=== PATIENT | male | born 1960 | race Caucasian/White ===

== ENCOUNTER → 2024-02-10 13:28 | Outpatient (REF) | payer OTHER, SELFPAY | LOC: RAD 13:28 | PROVIDERS: ATTENDING PHYSICIAN Family Medicine | DX: M79.89 Other specified soft tissue disorders (principal) | CPT/HCPCS: 93971 ==

== ENCOUNTER 2025-02-21 15:27 | Emergency (ER) | payer OTHER, SELFPAY ==
[2025-02-21 15:29] VITALS: BP 148/78
--- NOTE | 2025-02-21 16:26 | ED.GENMED ---
History of Present Illness
General
Chief Complaint: Swelling
Source: patient and spouse ( at bedside)
Exam Limitations: none
Time Seen by Provider: 02/21/25 16:10
Nursing documentation reviewed up to this point in time: agreed with
History of Present Illness
History of Present Illness:
Patient is a 64 year old male with history hypertension, diabetes, DVT presenting to the emergency department via EMS from PCP office with swelling of left lower extremity. Patient reports intermittent swelling in his left lower leg over the past 2
to 3 weeks. He states he started noticing pain in his left calf a few days ago. Patient had a scheduled appoint with his primary care today where they evaluated the lower leg swelling and were concerned that he may have a blood clot. They sent
him to the emergency department for further evaluation.
Patient denies any fever, chills, chest pain, shortness of breath.
Patient does have a history of a DVT in left leg about 1 year ago and is currently treated with Eliquis. Although he does endorse very poor compliance with his Eliquis and states he takes it usually once a day at best although it is prescribed
twice a day. He was also diagnosed with plaque psoriasis of LLE which he treats topically.
There has been no recent trauma.
Past History
Past History
ED Past Medical History: HTN and NIDDM
ED Past Surgical History: Other (Dental)
Social History
Tobacco: Non-smoker
Review of Systems
Review of Systems
Allergies reviewed?: Yes
All Other Systems: ROS reviewed and negative except as documented in HPI and ROS
Phy Exam
Physical Exam
Physical Exam:
Vitals: Hypertensive, otherwise vital signs stable. Afebrile
General: Patient is well appearing, no acute distress
Skin: Warm and dry, no rashes or lesions. Erythema and scaling of left lower extremity and foot.
Head: Normocephalic, atraumatic
Eyes: Sclera nonicteric. EOMs intact. No nystagmus.
Throat: Protecting airway
Neck: Normal ROM, no cervical spine tenderness, no meningismus
Cardiac: Regular rate and rhythm, no murmurs.
Pulm: Normal respiratory effort, no wheezes, rales, rhonchi heard on exam.
Abdomen: Abdomen soft and nontender.
Extremities: 1+ pitting edema of left lower extremity from foot to mid calf. Full range of motion in left ankle and left knee without pain. Erythema and scaling of skin of left ewing and left foot without red streaking or significant warmth.
Palpable DP pulses left lower extremity. Cap refill within normal limits.
Neuro: AAOx3. Grossly intact.
Psychiatric: Normal affect.
Scores
Heart Failure Risk
Heart Failure Risk Score: Not Applicable
Course
Orders/Labs/Results
Orders:
Orders
02/21/25 16:22
US Legs, Left [US Periph Venous LOWER Ext LT] Urgent
Comment:
Reason For Exam: LLE swelling; hx DVT
02/21/25 16:29
Basic Metabolic Panel Urgent
Complete Blood Count/With Diff Urgent
02/21/25 19:09
Cephalexin Monohydrate [Keflex] 500 mg PO NOW STA
Abnormal Lab Results
02/21/25
16:29
RBC 4.27 L 10^6/uL
(4.70-6.10)
Hgb 12.6 L g/dL
(13.0-18.0)
Hct 37.5 L %
(39.0-52.0)
BUN 27 H mg/dl
(9-20)
Glucose 293 H mg/dl
(70-99)
02/21/25 16:29
02/21/25 16:29
Vital Signs
Initial and Last Documented VS:
Initial Vital Signs
Temp Pulse Resp BP Pulse Ox
97.8 F 84 16 148/78 98
02/21/25 15:29 02/21/25 15:29 02/21/25 15:29 02/21/25 15:29 02/21/25 15:29
Last Documented Vital Signs
Temp Pulse Resp BP Pulse Ox
97.8 F 86 20 148/78 95
02/21/25 15:29 02/21/25 19:23 02/21/25 19:23 02/21/25 15:29 02/21/25 19:23
MDM/Problems Addressed
Differential Diagnosis Includes:
Not limited to: DVT, cellulitis, plaque psoriasis, ruptured Herron's cyst, lymphedema, etc.
MDM/Problems Addressed:
Patient is a 64-year-old male with history as documented presenting with intermittent left lower extremity edema and minimal pain. Does have history of DVT in left lower extremity and poor compliance with Eliquis. No associated fever, chest pain,
shortness of breath, numbness/tingling in LLE. No recent trauma. Mildly hypertensive, otherwise stable vital signs. Physical exam as above. Patient well-appearing, no apparent distress. Cardio/pulmonary assessment unremarkable. He does have 1+
pitting edema of left lower extremity with mild erythema and scaling of skin. Differential diagnosis includes DVT, cellulitis, lymphedema, etc. Will patient is currently anticoagulated�given poor compliance�DVT would remain on differential. Will
check basic labs and ultrasound left lower extremity.
Update: Labs reviewed. He is acutely hyperglycemic with a sugar of 293. This was discussed with patient who also reports poor compliance with his glipizide. Ultrasound shows no evidence of DVT. Given erythema and scaling of left lower
extremity�will start Keflex to treat for possible cellulitic component. Lengthy discussion with patient and patient's regarding importance of compliance with both Eliquis, glipizide, and other medications. Advise follow-up with PCP next week.
Close return precautions discussed. Patient and patient's comfortable with plan. Patient ambulating out of department with no difficulty.
Chronic conditions affecting care:
Hypertension, diabetes, history of DVT
Acute Exacerbation and/or Progression of Chronic Illness:
Acutely hyperglycemic
*Radiology
Radiology exam reviewed: radiology read reviewed
*Pulse Oximetry
Patient hypoxic: no
*EKG
Interpreted by ED Provider?: NA
*[employer] Interpretation
Rate: [employer]eter- N/A
*Critical Care Note
Total Time (30-74mins, 75-104mins- exclusive of procedures): Not Applicable
Patient Management
Escalation/DeEscalation of care consider admission/obs:
Admit not indicated
ED Attending Note
-
Portions of this chart may have been created with voice recognition software.� Occasional wrong word or��sound alike� substitutions may have occurred due to the inherent limitations of voice recognition software.
Discharge Plan
Departure
Patient Disposition: Home (Routine Discharge)
Date of Disposition: 02/21/25
Time of Disposition: 19:09
Patient with high blood pressure during this ER visit?: Yes
Condition: Good
Covid-19: Not Applicable
Discharge Problem:
Cellulitis of left leg
Instructions: Cellulitis (skin infection) in adults - Discharge instructions, BLOOD PRESSURE
Prescriptions:
New
cephalexin 500 mg capsule
500 mg PO QID 7 Days Qty: 28 0RF
No Action
atorvastatin 80 MG tablet
80 mg PO QPM 30 Days Qty: 30 0RF
valsartan 80 MG tablet
160 mg PO DAILY 30 Days Qty: 30 0RF
metformin 1,000 MG tablet
1,000 mg PO BID 30 Days Qty: 60 0RF
aspirin 81 MG tablet,chewable
81 mg PO DAILY 30 Days Qty: 30 0RF
insulin aspart U-100 [Novolog FlexPen U-100 Insulin] 300 UNITS/3 ML insulin pen
6 units SC AC Qty: 1 1RF
insulin glargine [Lantus Solostar U-100 Insulin] 300 UNITS/3 ML insulin pen
25 units SC HS Qty: 1 1RF
Referrals:
Lashawn Monge DO [Family Provider] - Follow up in 5-7 days
Activity Restrictions/Additional Instructions:
Return to the emergency department with any high fevers, significant worsening in pain, swelling, or redness of left lower leg, expanding redness or red streaking, inability to ambulate, chest pain, shortness of breath, worsening in current
symptoms, or any other concerns
-Your ultrasound showed no evidence of DVT in your left lower leg.
-You were started on antibiotics for a skin infection. You should take this 4 times a day for the next week. You were given your first dose in the emergency department.
-As discussed - your glucose level was elevated today. It is important that you are compliant with your medications as prescribed.You should take your Eliquis twice a day as prescribed. Is very important you do not miss doses.
-Elevate your left leg. Wear compression stockings.
Follow-up with your primary care provider early next week for further evaluation and to ensure that symptoms are improving. If swelling persist/worsens�you may need a repeat ultrasound.
Interventions
Interventions:
*Risk Screen - Suicide Last Done: 02/21/25 16:32
*General Assessment Last Done: 02/21/25 16:32
*Neglect/Abuse Screening Last Done: 02/21/25 16:32
*ED- Fall Risk Assessment Last Done: 02/21/25 16:32
*ED COVID-19 Vaccine History Last Done: 02/21/25 16:32
*Nursing Disposition Last Done: 02/21/25 19:31
ED- Cardiac Assessment Last Done: 02/21/25 16:32
ED- Pulmonary Assessment Last Done: 02/21/25 16:32
ED-Skin Assessment Last Done: 02/21/25 16:32
Discharge Date and Time
Discharge Date/Time: 02/21/25 19:32
Print Language: [id number]
[2025-02-21 16:48] LABS: Blood Urea Nitrogen 27 mg/dl (9-20); Carbon Dioxide 30 mmol/L (22-30); Chloride 103 mmol/L (98-107); Glucose 293 mg/dl (70-99); Potassium 4.9 mmol/L (3.5-5.1); Sodium 138 mmol/L (135-145); eGFR > 60.00
[2025-02-21 17:24] LABS: % Basophils 0.6 % (0-2); % Eosinophils 2.5 % (0-6); % Immature Granulocytes 0.4 % (0-0.5); % Lymphocytes 24.1 % (20.5-51.1); % Monocytes 6.6 % (1.7-9.3); % Neutrophils 65.8 % (42.2-75.2); Absolute Eosinophils 0.2 10^3/uL (0-0.7); Absolute Lymphocytes 1.7 10^3/uL (1.2-3.4); Absolute Monocytes 0.5 10^3/uL (0.1-0.6); Absolute Neutrophils 4.7 10^3/uL (1.4-6.5); Hematocrit 37.5 % (39.0-52.0); Hemoglobin 12.6 g/dL (13.0-18.0); Mean Corp Hgb Conc. 33.6 g/dL (33.0-37.0); Mean Corpuscular Hgb 29.5 pg (27.0-31.0); Mean Corpuscular Volume 87.8 fL (80.0-94.0); Mean Platelet Volume 9.6 fL (7.4-10.4); Nucleated Red Blood Cells % 0 % (-); Platelet Count 176 10^3/uL (130-400); Red Blood Cell Count 4.27 10^6/uL (4.70-6.10); Red Cell Dist. Width 13.4 % (11.5-14.5); White Blood Cell Count 7.1 10^3/uL (4.8-10.8)
[2025-02-21] MEDS: KEFLEX 500 MG PO (19:19)
== END 2025-02-21 19:32 | disposition home or self-care (01) ==
LOC: EMR 15:27
PROVIDERS: Physician Assistant; EMERGENCY PHYSICIAN Emergency Medicine; FAMILY PHYSICIAN Internal Medicine
DX: L03.116 Cellulitis of left lower limb (principal); E11.65 Type 2 diabetes mellitus with hyperglycemia; I10 Essential (primary) hypertension; Z86.718 Personal history of other venous thrombosis and embolism; Z91.148 Patient's other noncompliance with medication regimen for other reason
CPT/HCPCS: 99284; 80048; 85025; 93971

== ENCOUNTER → 2025-11-13 12:25 | Outpatient (REF) | payer OTHER, SELFPAY ==
[2025-11-13 16:02] LABS: Blood Urea Nitrogen 26 mg/dl (9-20); Calcium 8.9 mg/dl (8.4-10.2); Carbon Dioxide 29 mmol/L (22-30); Chloride 103 mmol/L (98-107); Glucose 231 mg/dl (70-99); Potassium 5.0 mmol/L (3.5-5.1); Sodium 137 mmol/L (135-145); eGFR > 60.00
== END ==
LOC: HWLAB 12:25
PROVIDERS: ATTENDING PHYSICIAN Internal Medicine
DX: E87.5 Hyperkalemia (principal)
CPT/HCPCS: 36415; 80048